=== PATIENT | male | born 1970 | race African-American/Black ===

== ENCOUNTER 2017-10-17 14:34 | Inpatient (IN) | payer OTHER ==
[~2017-10-17] VITALS: Ht 177.8 cm; Wt 95.5 kg
[~2017-10-17 14:34] MED LIST: ACID REFLUX MED; LORTAB 7.5/5001 TAB PO; NORCO 325 MG-51 TAB PO; PREDNISONE20 MG PO; PRILOSEC 20MG20 MG PO
[2017-10-17] MEDS ORDERED: CYMBALTA 60MG60 MG PO (14:46)
[2017-10-17] MEDS ORDERED: CHOLESTEROL MED (14:46)
[2017-10-17 15:19] LABS: BASO % 0.7 % (0.0-2.0); EOS # 0.1 (0.0-0.7); EOS % 0.9 % (0-4.0); GRAN # 3.4 (1.4-6.5); GRAN % 60.3 % (42.2-75.2); HEMOGLOBIN 14.6 g/dl (13.5-18.0); LYMPH # 1.8 (1.2-3.4); LYMPH % 32.4 % (20.0-51.0); MEAN CELL VOLUME 70 fl (80.0-100.0); MEAN CORPUSCULAR HEMOGLOBIN 22 pg (27.0-31.0); MEAN CORPUSCULAR HGB CONC 32 g/dl (33.0-37.0); MEAN PLATELET VOLUME 10.6 fl (7.4-10.4); MONO # 0.3 (0.1-0.6); MONO % 5.5 % (1.7-9.3); PLATELET COUNT 272 K/mm3 (130-400); RED BLOOD COUNT 6.56 M/mm3 (4.20-5.60); REDCELL DISTRIBUTION WIDTH-CV 19.1 % (11.5-14.5)
[2017-10-17 15:32] LABS: ALANINE AMINOTRANSFERASE 33 U/L (21-72); ALBUMIN 4.7 gm/dL (3.5-5.0); ALKALINE PHOSPHATASE 50 U/L (50-136); ANION GAP 11 mmol/L (7-16); AST,SGOT 31 U/L (15-37); BILIRUBIN,TOTAL 0.8 mg/dL (0.0-1.0); BLOOD UREA NITROGEN 11 mg/dL (9-20); CALCIUM 9.2 mg/dL (8.4-10.2); CARBON DIOXIDE 29 mmol/L (22-30); CHLORIDE 101 mmol/L (98-107); CREATINE KINASE 124 U/L (55-170); CREATININE, serum 1.04 mg/dL (0.66-1.25); GLUCOSE 112 mg/dL (74-106); LIPASE 47 U/L (23-300); POTASSIUM 3.9 mmol/L (3.4-5.0); SODIUM 141 mmol/L (137-145); TOTAL PROTEIN 8.2 gm/dL (6.4-8.2)
[2017-10-17 15:50] LABS: TROPONIN-I 0.035 ng/mL (0.000-0.034)
[2017-10-17 19:36] VITALS: BP 121/74; PULSE 65; TEMP 98
[2017-10-17 20:44] LABS: PARTIAL THROMBOPLASTIN TIME 34.7 SECONDS (26.0-37.0)
[2017-10-17 21:00] VITALS: BP 126/80; PULSE 66
[2017-10-17 21:07] VITALS: BP 124/83; PULSE 63
[2017-10-17 21:24] VITALS: BP 132/78; PULSE 63
== END 2017-10-17 21:40 | disposition short-term general hospital (02) | DRG 282 ==
LOC: COL.ER 14:34 → MEDICAL 16:19
PROVIDERS: Emergency Medicine; Nurse Practitioner Family
DX: I21.4 Non-ST elevation (NSTEMI) myocardial infarction (principal); F17.210 Nicotine dependence, cigarettes, uncomplicated
CPT/HCPCS: 99222-AI; C9113; J1644; J2270; J7030

== ENCOUNTER 2019-08-29 08:45 | Outpatient (RCR) | payer OTHER ==
[~2019-08-29 08:45] MED LIST changes: +CHOLESTEROL MED; +CYMBALTA 60MG60 MG PO
== END 2019-11-27 | disposition home or self-care (01) ==
LOC: WSOH
DX: M51.16 Intervertebral disc disorders with radiculopathy, lumbar region (principal); I10 Essential (primary) hypertension; E78.00 Pure hypercholesterolemia, unspecified; K21.9 Gastro-esophageal reflux disease without esophagitis; F43.10 Post-traumatic stress disorder, unspecified; Z98.890 Other specified postprocedural states; Y99.0 Civilian activity done for income or pay